=== PATIENT | female | born 1995 | race Two or more races ===

== ENCOUNTER 2022-05-08 14:20 | Emergency (ER) | payer BC, OTHER ==
[2022-05-08 14:44] VITALS: BP 107/63; PULSE 105; TEMP 99.4; BMI 18.7
[2022-05-08] MEDS ORDERED: IBUPROFEN 600 MG TABLET (FP) PO ONE ×2 (15:34→16:18)
[2022-05-08] MEDS ORDERED: ACETAMINOPHEN 500 MG TABLET (FP) PO ONE (15:34)
[2022-05-08] MEDS ORDERED: ACETAMINOPHEN 500 MG TABLET (FP) ONE (16:18)
== END 2022-05-08 19:00 | disposition home or self-care (01) ==
LOC: JER 14:20
DX: U07.1 COVID-19 (principal)
CPT/HCPCS: 0241U-QW; 99283-25